=== PATIENT | male | born 1970 | race Caucasian/White ===

== ENCOUNTER 2022-11-26 11:28 | Outpatient (RCR) | payer OTHER, SELFPAY ==
--- NOTE | 2022-11-29 12:38 | HP.OTFCE.D ---
FCE D/C Summary Discharge text: MAE VAUGHAN was seen for a one time visit for an FCE on 11/26/22 and is discharged.
--- NOTE | 2022-11-29 12:38 | HP.FCE ---
Task Lift Floor (Occasional 1-33% of Day): 80# Floor (Frequent 34-66% of Day): 40# Floor (Constant 67-100% of Day): NA Floor PDL: Medium-Heavy Knee (Occasional 1-33% of Day): 80# Knee (Frequent 34-66% of Day): 40# Knee (Constant 67-100% of Day): NA Knee PDL: Medium-Heavy Waist (Occasional 1-33% of Day): 70# Waist (Frequent 34-66% of Day): 35# Waist (Constant 67-100% of Day): NA Waist PDL: Medium Shoulder (Occasional 1-33% of Day): 40# Shoulder (Frequent 34-66% of Day): 20# Shoulder (Constant 67-100% of Day): NA Shoulder PDL: Medium Overhead (Occasional 1-33% of Day): 25# Overhead (Frequent 34-66% of Day): 12.5# Overhead (Constant 67-100% of Day): NA Overhead PDL: Light Comments: pt can not lift on constant ability due to Pain and symptoms of tingling in left thigh. Physical Demand level for lifting at floor and knee levels MEDIUM-HEAVY Physical Demand level for lifting at waist and shoulder levels MEDIUM Physical Demand level for lifting at overhead LIGHT Work Activity/Posture Bending: Occasional Ability (1-33% of day) Squatting: Occasional Ability (1-33% of day) Kneeling: Occasional Ability (1-33% of day) Reaching out: Frequent Ability (34-66% of day) Reaching up: Frequent Ability (34-66% of day) Sitting: Frequent Ability (34-66% of day) Walking: Occasional Ability (1-33% of day) Standing: Occasional Ability (1-33% of day) Reference Reference: Duration Sedentary Sedentary Light Light Light Medium Medium Medium Heavy Very Heavy Heavy Occasional (0-33% of day) Frequent (34-66% of day) Constant (67-100% of day) 10 # Negligible Negligible 15 # 8 # Negligible 20 # 10# Negli. 35 # 18 # 7 # 50 # 25 # 10 # 75 # 100 # >100 # 38 # 50 # >50 # 15 # 20 # >20 # Patient Information Height: 18.59 m Weight:: 117.934 kg Hand Dominance: right Medical History Medical History Including Restrictions: pt states he was in good health until 2019 he was injured at work- pt states he does have to lift up objects out of [employer]- to get orders for certain deliveries - pt states he was able to recovery from this injury well and returned to work without difficulty. Pt states while trying to fix his washing machine he reach over and felt a pull on - states he could feel pain in his low back - just saw him last week and rec.d to return to him in 6 weeks after Physical therapy. ( will need to schedule it) - pt did go to chiropractor prior to leaving for vacation- pt states was able to walk around [employer] but then when got to [facility] he could hardly move- pt states just combination of injury-sitting and lifting suit cases compounded pts pain. pt states he is still seeing his Chiropractor 3x a week and had x rays done- pt states Dr. Washington did look at his x-ray- and rec'd physical therapy pt states he is using a inversion table-pt states this is helping pt states Dr. Washington will see him in about 6 weeks following PT. pt states he was ambulation short distances- then has increase in left leg symptoms of tingling/pain and weakness pt states it has been 5 weeks since his injury and he can feel the difference that some improvements are being made. Diagnoses Diagnoses: Bulging disk L 3-L4 dx 2019 denies any other medical conditions Symptoms Symptoms: Low Back pain left hip pain left thigh pain left leg tingling left thigh tightness feeling of pressure in lumbar spine when disc is moving. pt states he does feel weakness if left thigh ambulation distance Pain Pain: pt states pain is better last few days- states sitting here today is 2/10. states he takes Ibuprofen that helps states he does use ice on his back. 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 required. pt states he is required to lift 80# Driving 300 miles a day pt works 14 hour day 5 days a week. pt states he feels he would be able to return doing dock deliveries but would not be able to push carts for wheel off deliveries. Behavioral Behavioral: pt cooperative throughout assessment. ADLS ADLS: pt states lives in a two story with girlfriend on 1st floor set -up, with tub shower combination. pt states he is able bath/dress IND. pt states he does do light home tasks- and mowing the yard with riding cloth tearer- Driving IND. pt states girlfriend does most cleaning/cooking and grocery shopping. pt states initially walking distance was a problem but now he can walk a little further. Physical Examination ROM: pt demo ROM WFL Strength: Fet2 peak force testing in lbs. shoulder flexion right 15# left 18# shoulder ex 32# left 27# biceps right 36# left 31# triceps right 26# left 33# hip flexion right 47# left 31 (increase in back pain) quadriceps right 31# left 28# hamstrings right 30# left 33# pt demo with weakness on left hip flexion compared to other side. Right [employer] Strength Average: 101.66 Right [employer] Strength Percentile: 22.7% Left [employer] Strength Average: 101.66 Left [employer] Strength Percentile: 39.3% Right Lateral Pinch Average: 28.00 Right Lateral Pinch Percentile: >90% Left Lateral Pinch Average: 28.33 Left Lateral Pinch Percentile: >90% Right Tripod Pinch Average: 22.66 Right Tripod Pinch Percentile: 75% Left Tripod Pinch Average: 21.33 Left Tripod Pinch Percentile: 75% Sensation: denies in hands Fine Motor: denies Balance: pt demo no loss of balance throughout assessment. Non Material Handling Activities Bending: pt demo the ability to bend forward 3/3x , 10/10x and 10/10x rapidly. pt heart rate 112 pt reports left thigh tightness low back pain 2/10 Squatting: Pt demo the ability to squat 3/3x, 10/10x, and 10/10 rapidly pt heart rate 148 pt reported low back pain 2/10 Kneeling: pt demo the ability to kneel 3/3x, 10/10x, 10/10x rapidly reports left thigh tightness heart rate 125 Reaching out/up: pt demo the ability to reach up/out 3/3x, 10/10x and 10/10x rapidly pt heart rate 112 back pain 2/10 Walking: pt demo the ability to ambulate for 7 min with reciprocal step pattern. but due to increase symptoms of left leg spasms-tingling pt request stopping. pt able to sit about 1 min but symptoms returned once standing. pt can ambulate on low occasional ability Standing: pt demo the ability to stand 4 min with shifting body weight- pt would go and sit to decrease symptoms and return to standing after 30 sec. pt can stand on occasional ability Sitting: pt demo the ability to sit for 45 min with shifting body weight. pt can sit on frequent ability Climbing Stairs: pt ascended and descended 10 steps with a reciprocal step pattern and use of railing. pt report feeling of left leg weakness Dynamic Occasional Lifting Capacity Floor Lift: pt demo the ability to lift 80# maximally from floor level with good lifting mechanics. pt c/o pulling in left thigh back pain at 2/10 Knee Lift: pt demo the ability to lift 80# maximally from this level with good ability. Pt c/o low back pain at /10 and pulling in left thigh with tingling. Waist Lift: pt demo the ability to lift 70# maximally from this level with good lifting mechanics. symptoms of tingling/numbness as well as muscle spasms. Shoulder Lift: pt demo the ability to lift 40# maximally from this level wit good ability. Overhead Lift: pt demo the ability to lift 25# maximally from this level. Carrying: pt demo the ability to carry 25# for 30 feet pt c/o had increase in left leg spasms/ tingling 1-2/low back pain Comments: push pull ability 90# for 10 feet. with push tingling in left leg immediately 93 heart rate pt can push/pull on low occasional ability.
== END 2022-11-26 19:00 | disposition home or self-care (01) ==
LOC: OT 11:28
PROVIDERS: PCP Family Medicine; Referring Provider Family Medicine; Visit Provider Family Medicine
DX: M54.42 Lumbago with sciatica, left side (principal); M54.10 Radiculopathy, site unspecified; M51.26 Other intervertebral disc displacement, lumbar region
CPT/HCPCS: 97750